=== PATIENT | female | born 1945 | race Caucasian/White ===

== ENCOUNTER 2025-04-15 14:12 | Outpatient (AMB) | payer MEDICARE, SELFPAY ==
--- NOTE | 2025-04-15 14:14 | MHC.OFFVIS ---
Intake Visit Reasons: AUTHORIZATION NURSE/[facility] referral for LE swelling Intake Note: New patient presents for LE swelling. Patient states she has lymphedema, was given Lasix but it did not help. Was given compression stockings but has not used them as she had an issue with them getting stuck at her ankle. Accompanied by: Self / Same As Patient HPI HPI AUTHORIZATION NURSE/[facility] referral for LE swelling: Details: Viktoriya, a pleasant 79yo female patient, is presenting today on a referral from her PCP for concerns of bilateral lower extremity swelling and discomfort, with concerns of lymphedema. She stated to her PCP that she would like to specifically attend our lymphedema clinic. She states that for appx 1-2y now she has had increased bilateral lower extremity swelling and discomfort. Complaints include pain over varicosities, swelling of lower extremities, cramping, fatigue, and heaviness of the lower extremities. It has been affecting their daily activities including walking, standing, and any physical activity. It is noted in bilateral legs. She also thinks that this swelling and pain may be due to a traumatic fall/right shoulder injury she sustained 2y ago; she did not injury her legs but read that traumatic injuries can cause lymphedema. 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 She is a diabetic and her last A1C was 10.6% on 03/12/25. She is a nonsmoker. Patient denies any previous venous surgery or injections. Patient denies any history of DVT/ PE. Patient denies any history of phlebitis. Trial of compression includes - elevation; unable to wear compression socks They now present for vascular evaluation regarding their varicose veins. Review of Systems Const Reports as per HPI and Denies weakness ENT Reports Normal hearing present and Denies dizziness Card Reports as per HPI, Denies chest pain, Denies chest pain at rest, Denies chest pain with activity, Denies dyspnea and Denies dyspnea on exertion Resp Reports as per HPI, Denies cough, Denies dyspnea and Denies dyspnea on exertion GI Reports as per HPI, Denies abdominal pain, Denies nausea and Denies vomiting Musc Denies numbness Skin/Breast Reports as per HPI, Denies erythema and Denies wounds Neuro Reports Normal hearing present, Denies dizziness, Denies numbness, Denies Sensory deficit (Neuro) and Denies weakness Psych Reports no additional complaints Endo Reports no additional complaints Physical Exam Const General: healthy appearing and no acute distress Orientation/consciousness: patient oriented x3 HEENT Head: Yes normal to inspection Ears: hearing grossly normal bilaterally Mouth: Normal oral and palatal mucosa present Resp Effort & Inspection: normal respiratory effort and able to speak in complete sentences Auscultation: clear to auscultation bilaterally Cardio Jugular venous distension: no JVD Rate: regular rate Rhythm: regular rhythm Heart sounds: S1 normal heart sound present and S2 normal heart sound present Bruits: no abdominal aortic bruits, no carotid bruits, no femoral bruits and no renal bruits Peripheral pulses: Peripheral pulses 2+ throughout GI Inspection: Yes normal to inspection Palpation (GI): No Abdominal aortic bruit present Skin General skin exam: no rashes or lesions noted Wounds: no wounds Hair: normal Neuro General: patient oriented x3 Cranial nerves: Yes Normal hearing present Cognition (Neuro): normal cognition Gait exam (Neuro): Normal gait present Motor exam (neuro): 5/5 motor strength present throughout Sensory Exam: No Sensory deficit (Neuro) Extrem Other: Bilateral lower extremity: +2 pitting edema noted with hyperkeratosis, hyperpigmentation/erythematous discoloration in the mid-calf, and hyperplasia. There is decreased hair and shiny skin noted. No injuries or wounds noted. Palpable DP pulses noted. No lymphorrhea noted today; however, she states she has had some in the past. CEAP: C - 4 E - primary A - superficial P - reflux General: Yes normal to inspection, Yes full ROM, Yes capillary refill normal and Yes normal gait Assessment & Plan Assessment & Plan (1) Varicose veins of both lower extremities with inflammation: Code(s): I83.11 - Varicose veins of right lower extremity with inflammation; I83.12 - Varicose veins of left lower extremity with inflammation Category: Medical Plan: Viktoriya is presenting today on a referral from her PCP for concerns of lymphedema with bilateral lower extremity swelling and discomfort. She states she read somewhere that trauma/traumatic injuries can cause lymphedema. She states she had a fall 2y ago, only injuring her right shoulder/upper arm but she states since, she has had increased lower extremity swelling and discomfort; I tried to tell her that likely those were not related. I did discuss with her that she does have evidence of lymphedema and will likely have her attend an upcoming lymphedema clinic; I discussed that we want to make sure there is no vascular dx prior to getting her into the clinic, she is in agreement to this. In short, the patient has evidence of venous insufficiency. I have discussed the pathophysiology with the patient. In addition I have provided informational material regarding venous disease to the patient. We have discussed conservative measures including compression, elevation, and exercise. I have taken the liberty of ordering venous insufficiency testing with the patient. They will follow up with me after testing. The patient had an opportunity to ask questions regarding the treatment plan. All questions were answered. Imaging studies, laboratory studies and physical exam results were discussed and reviewed in detail. No major barriers to understanding were identified. The patient expressed understanding and agreement with the above treatment plan. The patient is aware they should contact our office by phone for worsening of the current condition or the appearance of new symptoms. Thank you for allowing me to participate in the vascular care of this patient. If you have any questions or concerns regarding the treatment for the above condition please do not hesitate to contact me. The office telephone contact is [phone]. This note is constructed using voice recognition software. While every effort has been made to ensure accuracy, art librarian errors may have been included. Thank you for allowing me to participate in the care of your patient. Yours sincerely, FRANCISCA Willett Orders: Orders US venous duplex LE BI 1 Week I83.11 - Varicose veins of right lower extremity with inflammation, I83.12 - Varicose veins of left lower extremity with inflammation Coding Level of Care Code New Pt Level 4 (58458) Diagnoses Varicose veins of both lower extremities with inflammation I83.11; I83.12
== END 2025-04-15 15:03 | disposition home or self-care (01) ==
LOC: HO.HVS 14:13
PROVIDERS: Visit Provider Physician Assistant Surgical
DX: I83.11 Varicose veins of right lower extremity with inflammation (principal); I83.12 Varicose veins of left lower extremity with inflammation
CPT/HCPCS: 99204

== ENCOUNTER → 2025-04-15 14:12 | Outpatient (BNVA) | payer OTHER, MEDICARE, SELFPAY | PROVIDERS: Visit Provider Physician Assistant Surgical | DX: I83.11 Varicose veins of right lower extremity with inflammation (principal); I83.12 Varicose veins of left lower extremity with inflammation | CPT/HCPCS: 99202 ==

== ENCOUNTER 2025-05-26 13:21 | Outpatient (REF) | payer MEDICARE, SELFPAY ==
--- NOTE | ~2025-05-26 | US_ITS ---
EXAMINATION: US LOWER EXTREMITY VENOUS (REFLUX EXAM), BILATERAL CLINICAL INFORMATION: Varicose veins of right lower extremity with inflammation. COMPARISON: None. TECHNIQUE: Color flow triplex imaging and compression Doppler was performed to evaluate both the deep and the superficial systems bilaterally. To evaluate the superficial system, the examination was performed in the upright position. Color-flow Doppler ultrasound and compression ultrasound were utilized. In addition, maneuvers were utilized to demonstrate reflux. FINDINGS: 1. DEEP VENOUS ULTRASOUND OF THE RIGHT LOWER EXTREMITY: Common Femoral Vein: Compressible, normal respiratory variation and augmented flow. Femoral Vein: Compressible, normal color flow and augmentation. Popliteal Vein: Compressible, normal augmentation. Deep Reflux: There is no evidence of reflux in the deep system in either the common femoral vein, superficial femoral or the popliteal vein. There is no evidence of a Galvez's cyst. 2. SUPERFICIAL ULTRASOUND WITH DOPPLER OF RIGHT LOWER EXTREMITY: GREAT SAPHENOUS VEIN: Saphenofemoral Junction: 0.7 cm; Reflux: 0 ms Proximal Thigh: 0.5 cm; Reflux: 0 ms Mid Thigh: 0.4 cm; Reflux: 0 ms Distal Thigh: 0.4 cm; Reflux: 0 ms At Knee: 0.4 cm; Reflux: 0 ms Proximal Calf: 0.3 cm; Reflux: 0 ms Mid Calf: 0.3 cm; Reflux: 0 ms Distal Calf: 0.3 cm; Reflux: 0 ms DUPLICATED MEDIAL GREAT SAPHENOUS VEIN: None imaged. DUPLICATED LATERAL GREAT SAPHENOUS VEIN: None imaged. SMALL SAPHENOUS VEIN: Saphenopopliteal Junction: 0.6 cm; Reflux: 0 ms Proximal: 0.3 cm; Reflux: 0 ms Distal: 0.3 cm; Reflux: 0 ms VEIN OF GIACOMINI: Size: 0.2 Reflux: 0 ms PERFORATORS: Mid thigh; 0.3 cm; no reflux. Midcalf; 0.2 cm; no reflux. VARICOSITIES: None imaged. 3. DEEP VENOUS ULTRASOUND OF THE LEFT LOWER EXTREMITY: Common Femoral Vein: Compressible, normal respiratory variation and augmented flow. Femoral Vein: Compressible, normal color flow and augmentation. Popliteal Vein: Compressible, normal augmentation. Deep Reflux: There is no evidence of reflux in the deep system in either the common femoral vein, superficial femoral or the popliteal vein. There is no evidence of a Galvez's cyst. 4. SUPERFICIAL ULTRASOUND WITH DOPPLER OF LEFT LOWER EXTREMITY: GREAT SAPHENOUS VEIN: Saphenofemoral Junction: 0.8 cm; Reflux: 0 ms Proximal Thigh: 0.5 cm; Reflux: 1672 ms Mid Thigh: 0.5 cm; Reflux: 1676 ms Distal Thigh: 0.4 cm; Reflux: 1364 ms At Knee: 0.5 cm; Reflux: 1180 ms Proximal Calf: 0.5 cm; Reflux: 2172 ms Mid Calf: 0.3 cm; Reflux: 588 ms Distal Calf: 0.4 cm; Reflux: 0 ms DUPLICATED MEDIAL GREAT SAPHENOUS VEIN: None imaged. DUPLICATED LATERAL GREAT SAPHENOUS VEIN: None imaged. SMALL SAPHENOUS VEIN: Saphenopopliteal Junction: 0.7 cm; Reflux: 0 ms Proximal: 0.4 cm; Reflux: 0 ms Distal: 0.3 cm; Reflux: 0 ms VEIN OF GIACOMINI: Size: 0.4 Reflux: 0 ms PERFORATORS: Midcalf; 0.3 cm; no reflux. Proximal calf; 0.3 cm; no reflux. Midcalf 20 cm from calcaneus; 0.2 cm, reflux: 1548 ms VARICOSITIES: Distal calf; 0.4 cm; no reflux. Proximal thigh; 0.4 cm; no reflux. Midcalf; 0.3 cm; no reflux. US/US venous insuf bilat IMPRESSION: RIGHT: 1. No right DVT or evidence of deep venous insufficiency. 2. No evidence of right superficial venous thrombosis or insufficiency. 3. No significant right varicosities identified. LEFT: 1. No left DVT or evidence of deep venous insufficiency. 2. Significant left superficial venous insufficiency of the greater saphenous vein extending from the proximal thigh to the mid calf region. No left superficial thrombosis. 3. Significant varicosities identified in the left distal calf, left mid calf, and left proximal thigh. Electronically signed by: Eric Aquino MD 05/26/2025 02:34 PM EDT
== END 2025-05-26 13:22 | disposition home or self-care (01) ==
LOC: HO.US 13:21
PROVIDERS: PCP Family Medicine; Visit Provider Physician Assistant Surgical
DX: I83.11 Varicose veins of right lower extremity with inflammation (principal); I83.12 Varicose veins of left lower extremity with inflammation
CPT/HCPCS: 93970

== ENCOUNTER → 2025-05-26 13:24 | Outpatient (BNV) | payer MEDICARE, SELFPAY | PROVIDERS: PCP Family Medicine; Visit Provider Radiology Diagnostic Radiology | DX: I83.812 Varicose veins of left lower extremity with pain (principal) | CPT/HCPCS: 93970 ==

== ENCOUNTER 2025-08-05 10:41 | Outpatient (AMB) | payer MEDICARE, SELFPAY ==
--- NOTE | 2025-08-05 10:55 | MHC.OFFVIS ---
Intake Visit Reasons: follow up s/p US 05/26/25 Intake Note: Patient presents for follow up US performed on 05/26/25. Patient states she has lymphedema in her legs. Difficulty walking , uses a can to ambulate. Patient feels unsteady on her feet. Right leg is painful. Accompanied by: Self / Same As Patient Allergies metformin Allergy (Mild, Verified 08/05/25 10:59) Diarrhea HPI HPI follow up s/p 05/26/25: Details: Very pleasant 80-year-old female presents for follow-up regarding venous insufficiency. She has a history of diabetes in right knee pain. She had actually been seen by a us regarding lymphedema evaluation. Upon workup she was noted to have venous insufficiency and now presents for results follow-up regarding that. She has had a trial of compression which provided minimal relief and she had an very difficult time wearing them. She now presents to us for follow-up. Review of Systems Const Reports as per HPI ENT Reports no additional complaints Card Denies chest pain, Denies chest pain at rest and Denies chest pain with activity Resp Denies chest congestion and Denies cough GI Reports no additional complaints Musc Details: pain over varicosities, aching of lower extremities, swelling, cramping, heaviness and tiredness, itching Denies abnormal gait Skin/Breast Reports pruritus and Denies wounds Neuro Reports no additional complaints and Denies abnormal gait Psych Denies no additional complaints Physical Exam Const General: cooperative, healthy appearing and comfortable Orientation/consciousness: oriented to person, oriented to place and oriented to time Neck Carotids: no bruits Chest Chest palpation & inspection: normal inspection of the chest and normal palpation of entire chest wall Resp Effort & Inspection: normal respiratory effort and able to speak in complete sentences Cardio Rate: regular rate Heart sounds: S1 normal heart sound present and S2 normal heart sound present Peripheral pulses: Peripheral pulses 2+ throughout GI Inspection: Yes normal to inspection Skin Other: +2 edema, large rope-like varicosities greater than 4 mm CEAP Classification C4 - skin color changes Ep - Etiology Primary As - superficial veins P - reflux General skin exam: dry skin Neuro General: oriented to person, oriented to place and oriented to time Extrem Right lower extremity: full ROM, normal capillary refill and edema Left lower extremity: full ROM, normal capillary refill and edema Psych Mental Status: mental status grossly normal Results Reviewed Results Reviewed: Brief summary of venous insufficiency testing is as follows: right great saphenous vein: negative right small saphenous vein: negative right accessory vein: none present left great saphenous vein: Positive left small saphenous vein: negative left accessory vein: none present Please note there is no evidence of any venous aneurysms or significant tortuosity Assessment & Plan Assessment & Plan (1) Varicose veins of left lower extremity with inflammation: Code(s): I83.12 - Varicose veins of left lower extremity with inflammation Category: Medical Plan: This patient has varicose veins with inflammation. They continue to be a source of discomfort for the patient. The patient has tried conservative treatment with compression, leg elevation and exercise program for over 3 months time. They have been compliant with all treatment. This has provided minimal relief for the patient. I do not anticipate this course of treatment will alter the underlying etiology. The patient has been scheduled for lower extremity venous treatment inclusive of --- left great saphenous vein Cyanoacralate ablation. Risks, benefits, and complications of this procedure has been discussed in detail with the patient including but not limited to bleeding, infection, and the development of a DVT. The patient has demonstrated a clear understanding and has consented. We will schedule the patient as soon as possible. Thank you for allowing us to participate in this patient's care. If there are any questions or concerns please do not hesitate to contact us. Coding Level of Care Code Est Pt Level 4 (25361) Diagnoses Varicose veins of left lower extremity with inflammation I83.12
--- OUTSIDE RECORDS SUMMARY | 2025-08-05 14:13 | XMS_ITS | Encounter Summary ---
Author Organization [facility] Address [address] [facility] [address] [place] [address] Phone Care Team Providers Care [employer] Name Role Phone Chio Sams MD Primary Care Provider [phone] Reason for Referral * Outpatient Procedure - Closed Specialty Diagnoses / Procedures Referred By [email or web address] t Referred To Contact Radiology Diagnoses Edema, unspecified type Procedures Adult Echo TTE Chio Sams MD [address] [place] [id number] Phone: tel: fax: [email or web address] Referral ID Status Reason Start Date Expiration Date Visits Re quested Visits Authorized [id number] Closed 02/05/2024 02/04/2025 1 1 Encounter Details Date Type Department Care Team (Late st Contact Info) Description 02/05/2024 Transcribe Orders Virtual Department [address] [place] [address] Chio Sams MD [address] [place] [phone] [email or web address] Edema, unspecified type (Primary Dx) Social History Tobacco Use Types Packs/Day Years Used Date Smoking Tobacco: Never Smokeless Tobacco: Never Alcohol Use Standard Drinks/Week Comments Never 0 (1 standard drink = 0.6 oz pur e alcohol) Home Health Assessment: Transportation Answer Date Recorded Lack of Transportation (Medical) No 10/06/2023 Lack of Transportation (Non-Medical) No 10/06/2023 Patient Unable or Declines to Respond No 10/06/2023 Education Answer Date Recorded Are you interested in more education? Not on martín e 03/17/2023 Are you concerned about learning? Not on file 03/17/2023 No 03/17/2023 No 03/17/2023 Digital Access Answer Date Recorded No 04/15/2023 No 04/15/2023 Reliable internet access at home? Not on file 04/15/2023 Device with a working camera? Not on file Comments Unknown Sex and Gender Information Value Date Recorded Sex Assigned at Female 10/28/2019 1:29 PM EST Legal Sex Female 10:08 PM EDT Gender Identity Female 10/28/2019 1:29 PM EST Sexual Orientation Not on file documented as of this encounter Plan of Treatment Upcoming Encounters Date Type Department Care Team (Late st Contact Info) Description 08/07/2025 10:00 AM EDT Office Visit [facility] [address] [place] [address] Valentina Alexandra, GLASS TINTER [address] [place] [phone] Brigette Richards, PT [address] [place] [address] [email or web address] documented as of this encounter Results * TTE COMPREHENSIVE (04/11/2024 11:15 AM EDT) Body Surface Area 1.83 m2 Height 163 cm Weight 78 kg Systolic BP 120 mmHg Diastolic BP 70 mmHg Interventricular Septum Thickness 12 6 - 11 mm Left Ventricle Internal Diameter End Diastole 45 37 - 52 mm Left Ventricle Internal Diameter End Systole 28 <35 mm Left Ventricular Outflow Tract Diameter 20.0 mm LVOT VTI REST 315.0 mm Left Ventricular Outflow Tract Velocity 1.4 m/s Left Ventricular Outflow Tract Gradient at Rest 8 mmHg Left Ventricular Posterior Wall Thickness 12 6 - 11 mm Ejection Fraction 61 50 - 75 Percent Left Atrium Dimension Anterior-Posterior 36 15 - 40 mm Aortic Valve Mean Gradient 6 mmHg Aortic Valve Time Velocity Integral 387.0 mm Aortic Valve Peak Velocity 150.0 cm/s Aortic Valve Peak Gradient 9 mmHg Aortic Sinus Diameter 33 <40 mm Ascending Aorta Diameter 39 <36 mm Inferior Vena Cava Diameter 13 <21 mm Mitral Valve Deceleration Time 324 ms Mitral Valve A Wave Speed 97.3 cm/s Mitral Valve E Wave Speed 75.4 cm/s Right Ventricle Basal Diameter 32 25 - 41 mm Tricuspid Valve Peak Velocity 2.4 m/s Raw LV EF% 61 % Relative Wall Thickness 0.53 0.22 - 0.42 Aortic Valve Prosthetic Peak Gradient 9 mmHg Aortic Valve Prosthetic Mean Gradient 6 mmHg Aortic Valve Sinus Index by BSA 18 mm/m2 Aorta Sinus Index by Height 2.02 cm/m Aorta Sinus CSA index by Height 5.24 cm2/m Ascending Aorta Index 21 mm/m2 Asc Aorta CSA Index by Height 7.33 cm2/m Right Ventricle to Right Atrium Pressure Gradient 23 mmHg Right Ventricle Peak Systolic Pressure (Assuming RAP 10) 33 mmHg RVSP (Exclusive of RAP) 23 mmHg Ascending Aorta Index 21 mm Aortic Sinus Index 18 mm Ascending Aorta Diameter 21 mm Aortic Valve Sinus Index 1 18 19 - 27 mm AO ASC DIAM BSA INDEX 21.31 Left Atrial Volume Index 33 16 - 34 mL/m2 Right Ventricle Peak Systolic Pressure 26 mmHg Left Ventricle E Wave Speed 75.0 cm/s Right Ventricle TAPSE 22 >=17 mm Left Ventricle Ea Lateral Wave Speed 6.5 cm/s Right Ventricle Pulse Doppler S Wave 11.2 >=9.5 cm/s MV E/E' Tissue Velocity Lateral 11.54 Left Ventricle A Wave Speed 97.0 cm/s MV E/A ratio 0.8 Left Ventricle Ea Septal Wave Speed 5.1 cm/s MV E/e' septal 14.71 Left Ventricle E/e' Average 13.1 Left Atrial Volume 61 mL Left Atrial Volume Index by Height 37 mL/m Right Atrium Pressure Estimated 3 mmHg Echo E/Ea 14.71 Anatomical Region Laterality Modality Heart Ultrasound Narrative 04/11/2024 11:46 AM EDT 1. This patient was imaged during normal sinus rhythm. The estimated ejection fraction of the left ventricle is 60%. There are no wall motion abnormalities and there is mild concentric left ventricular hypertrophy. There is grade 1 diastolic impairment. 2. Normal RV size and function. 3. Trileaflet aortic valve with no evidence of aortic stenosis the ascending aortic root is normal size. 4. Trace to mild mitral and trace tricuspid insufficiency with a PA pressure of 30 mmHg. 4. Normal pericardium and no prior echo available for comparison. Left Ventricle The left ventricle is normal in size. There is LV hypertrophy with upper septal predominance. There is mild concentric hypertrophy. There is normal left ventricular systolic function. The LV ejection fraction is 61% (calculated via biplane measurement). There are no wall motion abnormalities. There is abnormal diastolic function. The E/A ratio is 0.8. The e' septal wave velocity is 5.1 cm/s. The e' lateral wave velocity is 6.5 cm/s. The average E/e' ratio is 13.1. Right Ventricle The right ventricle is normal in size. There is normal right ventricular systolic function. TAPSE is 22 mm. RV S' wave is 11.2 cm/s. Left Atrium The left atrium is normal in size. The left atrial anterior-posterior dimension is 36 mm. The left atrial volume index by BSA is 33 mL/m2. Right Atrium The right atrium is normal in size. The IVC is normal in size with normal inspiratory collapse. Mitral Valve There is anterior and posterior mitral annular calcification. There is no mitral stenosis. There is trace to mild mitral regurgitation. Tricuspid Valve The tricuspid valve appears normal. There is no tricuspid stenosis. There is trace tricuspid regurgitation. The RV systolic pressure was calculated at 26 mmHg (using TR peak velocity of 2.4 m/s and assuming an RA pressure of 3 mmHg). Aortic Valve The aortic valve is tricuspid. There is no aortic stenosis. There is no aortic regurgitation. The ascending aorta is mildly dilated. The ascending aortic diameter is 39 mm. Pulmonic Valve The pulmonic valve appears normal. There is no pulmonic stenosis. There is no pulmonic regurgitation. General Findings The image quality was good (2). Technique(s) used in the evaluation: Color flow Doppler and Spectral Doppler. The predominant rhythm during the study was sinus. Comparison Findings There are no prior studies for comparison. IAS/IVS The interatrial septum appears normal. Chio Smas MD CV ECHO ORDERABLES Final Re sult documented in this encounter Visit Diagnoses Diagnosis Edema, unspecified type- Primary Edema, unspecified type documented in this encounter Care Teams [employer] Relationship Specialty Start Date End Date Chio Sams MD [email or web address] PCP - General 09/07/17 documented as of this encounter Additional Source Comments The information contained in this document represents components of the legal health record. It is not the complete legal health record.[facility]
--- OUTSIDE RECORDS SUMMARY | 2025-08-05 14:13 | XMS_ITS | Encounter Summary ---
Author Organization [facility] Address [address] [facility] [address] [place] [phone] Phone Care Team Providers Care [employer] Field Supervisor Name Role Phone Chio Sams MD Primary Care Provider [phone] Encounter Details Date Type Department Care Team (Late st Contact Info) Description 02/05/2024 Procedure Pass [facility] [address] [place] [address] Social History Tobacco Use Types Packs/Day Years [...] Description 08/07/2025 10:00 AM EDT Office Visit [facility] [address] [place] [address] Valentina Alxeandra, [employer] ATTENDANT [address] [place] [phone] Brigette Richards, PT [address] [place] [address] documented as of this encounter Visit Diagnoses Not on filedocumented in this encounter Care Teams [employer] Field Supervisor Relationship Specialty Start Date End Date Chio Sams MD PCP - General 09/07/17 documented as of this encounter Additional Source Comments The information contained in this document represents components of the legal health record. It is not the complete legal health record.[facility]
--- OUTSIDE RECORDS SUMMARY | 2025-08-05 14:13 | XMS_ITS | Encounter Summary ---
Author Organization [facility] Address [address] [place] [address] Phone Care Team Providers Care Three Dimensional Map Modeler Name Role Phone Chio Sams MD Primary Care Provider [phone] Reason for Referral * Physical Therapy (Routine) - Closed Specialty Diagnoses / Procedures Referred By Shanika davila Referred To Contact Physical Therapy Chio Sams MD Phone: tel: fax: mailto:[email or web address] [address] [place] [address] Phone: tel: Referral ID Status Reason Start Date Expiration Date Visits Re quested Visits Authorized [id number] Closed 12/04/2019 11/19/2020 25 25 Encounter Details Date Type Department Care Team (Late st Contact Info) Description 11/08/2019 Transcribe Orders [facility] [address] [place] [address] Chio Sams MD [address] [place] [address] Social History Tobacco Use Types Packs/Day Years Used Date Smoking Tobacco: Never Smokeless Tobacco: Never Alcohol Use Standard Drinks/Week Comments Never 0 (1 standard drink = 0.6 oz pur e alcohol) Comments Unknown Sex and Gender Information Value Date Recorded Sex Assigned at Female 10/28/2019 1:29 PM EST Legal Sex Female 10:08 PM EDT Gender Identity Female 10/28/2019 1:29 PM EST Sexual Orientation Not on file documented as of this encounter Plan of Treatment Upcoming Encounters Date Type Department Care Team (Late st Contact Info) Description 08/07/2025 10:00 AM EDT Office Visit [facility] [address] [place] [address] Valentina Alexandra, SENIOR DATASTAGE DEVELOPER [address] [place] [address] Brigette Richards, PT [address] [place] [address] Scheduled Referrals Name Type Priority Associated Diagnoses Order Schedule Ambulatory referral to [facility] Physical Therapy Outpatient Referral Routine Ordered: 11/08/2019 documented as of this encounter Visit Diagnoses Not on filedocumented in this encounter Additional Health Concerns Infection Onset Date Last Indicated Resolved Time CoV-Risk 04/02/2022 04/02/2022 04/03/2022 4:55 AM EDT COVID-19 04/02/2022 04/02/2022 04/23/2022 1:23 AM EDT documented as of this encounter Care Teams Three Dimensional Map Modeler Relationship Specialty Start Date End Date Chio Sams MD PCP - General 09/07/17 documented as of this encounter Additional Source Comments The information contained in this document represents components of the legal health record. It is not the complete legal health record.[facility]
--- OUTSIDE RECORDS SUMMARY | 2025-08-05 14:13 | XMS_ITS | Encounter Summary ---
Author Organization [facility] Address [address] [address] Phone Care Team Providers Care Learning And Development Manager Name Role Phone Chio Sams MD Primary Care Provider [phone]- [phone] Encounter Details Date Type Department Care Team (Latest Contact Info) Description 05/31/2023 Transcribe Orders Virtual Department [address] [place] [address] Miles Arroyo MD [address] [place] [address] [email or web address] Age-related osteoporosis without current pathological fracture (Primary Dx) Social History Tobacco Use Types Packs/Day Years Used Date Smoking Tobacco: Never Smokeless Tobacco: Never Alcohol Use Standard Drinks/Week Comments Never 0 (1 standard drink = 0.6 oz pur e alcohol) Education Answer Date Recorded Are you interested [...] Upcoming Encounters Date Type Department Care Team ( Contact Info) Description 08/07/2025 10:00 AM EDT Office Visit [facility] [address] [place] [address] Valentina Alexandra MECHANICAL TEST ENGINEER [address] [place] [address] Brigette Richards, PT [address] [place] [address] [email or web address] documented as of this encounter Visit Diagnoses Diagnosis Age-related osteoporosis without current pathological fracture- Primary documented in this encounter Care Teams Learning And Development Manager Relationship Specialty Start Date End Date Chio Sams MD [email or web address] PCP - General 09/07/17 documented as of this encounter Additional Source Comments The information contained in this document represents components of the legal health record. It is not the complete legal health record.[facility]
--- OUTSIDE RECORDS SUMMARY | 2025-08-05 14:13 | XMS_ITS | Clinical Summary ---
Author Organization [facility] Address [address] [facility] [address] [place] [address] Phone Care Team Providers Care Prepared Foods Associate Name Role Phone Chio Sams MD Primary Care Provider [phone] Allergies Active Allergy Reactions Criticality Noted Date Comments Amoxicillin-Pot Clavulanate 10/28/20 19 Metformin 10/28/2019 Medications alendronate (FOSAMAX) 70 MG tablet Take 70 mg by mouth daily. Active lancets 28 gauge Misc as directed. 4 Active blood sugar diagnostic Strp strips as directed. 4 Active lisinopril (PRINIVIL,ZESTRI L) 2.5 MG tablet Take 2.5 mg by mouth daily. Active omeprazole (PRILOSEC) 20 MG capsule Take 20 mg by mouth daily. Active rosuvastatin (CRESTOR) 40 MG tablet Take 40 mg by mouth daily. Active traMADol (ULTRAM) 50 mg tablet Take 50 mg by mouth as needed. Active Medication-Free Text Mastectomy bra Ht: 64 -, Sig: as directed - and mastectomy form Dx: Breast CA-left mastectomy Active lidocaine 5 % ointment 1 application to affected area as needed Externally 45 minutes before appointment Active citalopram (CELEXA) 20 MG tablet Take 20 mg by mouth daily. 2 Active BD FRANCISCA 2ND GEN PEN NEEDLE 32 gauge x Ndle USE 2 TIMES A DAY 2 Active benzonatate (TESSALON) 100 MG capsule [The details of the medication are not available because there are pending changes by a home health clinician.] 21 capsule 2 Active Additional Information Patient not taking.Reason: Therapy complete, Informant: Self, Reported on 09/05/2023 acetaminophen (TYLENOL) 500 MG tablet Take 1,000 mg by mouth every 8 (eight) hours as needed for pain (specific location in comments) (RUE). Active baclofen (LIORESAL) 10 MG tablet Take 10 mg by mouth 3 (three) times a day. Active betamethasone dipropionate 0.05 % cream Apply 1 Application topically 2 (two) times a day. Active busPIRone (BUSPAR) 30 MG tablet Take 30 mg by mouth 2 (two) times a day. Active bisacodyl (DULCOLAX) [address] 10 mg rectally as needed (constipation). Active celecoxib (CELEBREX) 200 MG capsule Take 200 mg by mouth daily. Active docusate sodium (COLACE) 100 MG capsule Take 100 mg by mouth 2 (two) times a day as needed for mild constipation or moderate constipation. Active gabapentin (NEURONTIN) 300 MG capsule Take 900 mg by mouth nightly at bedtime. Active insulin glargine (LANTUS SOLOSTAR U-100 INSULIN) 100 unit/mL (3 mL) InPn injection pen Inject 70 Units under the skin daily. Active insulin lispro (ADMELOG, HUMALOG) 100 unit/mL injection pen Inject under the skin 3 (three) times a day before meals. before meals, BS 200-250 = 2 units, 251-300 = 4 units, 301-350 = 6 units, 351-400 = 8 units, 401-450 = 10 units, over 450 = call MD Active melatonin 3 mg Tab Take 3 mg by mouth nightly at bedtime. Active nystatin (NYSTOP) powder Apply 1 Application topically 2 (two) times a day. Active oxyCODONE 5 MG immediate release tablet Take 5 mg by mouth every 8 (eight) hours as needed for pain (specific location in comments) (RUE). Active propranoloL (INDERAL LA) 80 mg 24 hr capsule Take 80 mg by mouth daily. 3 Active ergocalciferol (VITAMIN D2) 50,000 unit capsule Take 50,000 Units by mouth once a week. 3 Active Active Problems No known active problems Encounters Date Type Department Care Team Description 07/15/2025 Transcribe Orders [facility] [address] [place] [address] Rebeca Garcia Encounter for rehabilitation (Primary Dx) from Last 3 Months Social History Tobacco Use Types Packs/Day Years [...] PM EST Sexual Orientation Not on file Last Filed Vital Signs Vital Sign Reading Time Taken Comments Blood Pressure 120/70 10/06/2023 12:26 PM EST Pulse 68 10/06/2023 12:26 PM EST Temperature 36.2 C (97.1 F) 09/21/2023 9:32 AM EDT Respiratory Rate 16 09/13/2023 11:13 AM EDT Oxygen Saturation 96% 10/06/2023 12:26 PM EST Inhaled Oxygen Concentration - - Weight 78 kg (172 lb) 04/02/2022 2:40 PM EDT Height 162.6 cm (5' 4 ) 04/02/2022 2:40 PM EDT Body Mass Index 29.52 04/02/2022 2:40 PM EDT Plan of Treatment Upcoming Encounters Date Type Department Care Team (Late st Contact Info) Description 08/07/2025 10:00 AM EDT Office Visit [facility] [address] [place] [address] Valentina Alexandra, WAISTLINE JOINER OVERLOCK [address] [place] [address] Brigette Richards, PT [address] [place] [address] [email or web address] Health Maintenance Due Date Last Done Comments DEPRESSION SCREENING 1958 HEPATITIS C SCREENING 1964 ZOSTER VACCINES (1 of 2) 1996 OSTEOPOROSIS SCREENING INITIAL (ONE-TIME) 2011 LIPID PANEL 11/04/2019 11/04/2014 RSV VACCINE (1 - 1-dose 75+ series) 2021 Adult Td,Tdap Booster 07/16/2022 07/16/2012 CREATININE LEVEL 08/02/2024 08/02/2023, 10/28/2019 POTASSIUM LEVEL 08/02/2024 08/02/2023, 10/28/2019 INFLUENZA VACCINE (#1) 2025 9, 10/29/2018, 10/23/2017, Additional history exists COVID-19 VACCINE ( season) 2025 11/04/2021, 05/01/2021, 03/31/2021 PNEUMOCOCCAL VACCINES (50+ years) Completed 03/26/2018, 02/02/2014, 02/05/2009 SMOKING STATUS SCREENING (Once After 26 Yrs) Completed 04/02/2022 HEPATITIS A VACCINES Aged Out No long er eligible based on patient's age to complete this topic HIB VACCINES Aged Out No longer eligi ble based on patient's age to complete this topic MENINGOCOCCAL VACCINES (ACWY) Aged Out No longer eligible based on patient's age to complete this topic MENINGOCOCCAL VACCINES (B) Aged Out N o longer eligible based on patient's age to complete this topic Medical Devices Not on file Procedures Procedure Name Priority Date/Time Associated Diagnosis Comments COMPREHENSIVE METABOLIC PANEL Routine 08/02/2023 5:42 AM EDT Other specified diabetes mellitus with other specified complication, unspecified whether custodial insulin use OUTSIDE LDL Routine 11/04/2014 from Last 3 Months or Most Recently Relevant to Health Maintenance Results * (ABNORMAL) Comprehensive metabolic panel (08/02/2023 5:42 AM EDT) SODIUM 134 133 - 146 mmol/L [facility] POTASSIUM 4.8 3.3 - 5.1 mmol/L [facility] CHLORIDE 96 96 - 108 mmol/L [facility] CO2 28 21 - 35 mmol/L [facility] BUN 25(H) 6 - 19 mg/dL [facility] CREATININE 0.50 0.5 - 1.5 mg/dL [facility] GLUCOSE 247(H) 70 - 99 mg/dL [facility] ALBUMIN 3.8(L) 3.9 - 4.8 g/dL [facility] TOTAL PROTEIN 5.8(L) 6.5 - 8.0 g/dL [facility] CALCIUM 9.2 8.4 - 10.3 mg/dL [facility] ALKALINE PHOSPHATASE 62 39 - 117 U/L [facility] TOTAL BILIRUBIN 0.4 0.0 - 1.2 mg/dL [facility] AST 16 0 - 37 U/L [facility] ALT 12 0 - 40 U/L [facility] GLOBULIN 2.0 1 - 4.8 g/dL [facility] EGFR 97 >59 mL/min/1.7 3m2 [facility] Comment:Estimated glomerular filtration rate calculated using the CKD-EPI refit equation. ANION GAP 15 10 - 20 mmol/L [facility] Blood 08/02/2023 5:42 AM EDT 08/02/2023 1:55 PM EDT us Homer Duckworth MD LAB BLOOD ORDERABLES Final Resul t [facility] [address] [place] [address] * Outside LDL (11/04/2014) LDL - External 119 50 - 250 mg/ml us Historical Provider LAB BLOOD ORDERABLES Amanda l Result from Last 3 Months or Most Recently Relevant to Health Maintenance Insurance [employer] RE[employer]ACEMENT [employer] [place] [place] REPLACEMENT [facility] MED[facility] HMO REPLACEMENT [employer] [place] [employer] REPLACEMENT [employer] [place] [employer] REPLACEMENT [facility] MEDICARE HMO REPLACEMENT [employer] [place] [employer] REPLACEMENT [employer] REPLACEMENT Member Subscriber Plan / Payer ( fective 2018-Present) Name:Viktoriya Olvera Relation to Subscriber:Self Name:Viktoriya Olvera Payer ID:Not on file Type:Medicare Address: [place] [id number] Care Teams Prepared Foods Associate Relationship Specialty Start Date End Date Chio Sams MD PCP - General 09/07/17 Additional Source Comments The information contained in this document represents components of the legal health record. It is not the complete legal health record.[facility]
== END 2025-08-05 11:51 | disposition home or self-care (01) ==
LOC: HO.HVS 10:42
PROVIDERS: PCP Family Medicine; Visit Provider Surgery Vascular Surgery
DX: I83.12 Varicose veins of left lower extremity with inflammation (principal)
CPT/HCPCS: 99214

== ENCOUNTER → 2025-08-05 10:41 | Outpatient (BNVA) | payer MEDICARE, SELFPAY | PROVIDERS: PCP Family Medicine; Visit Provider Surgery Vascular Surgery | DX: I83.12 Varicose veins of left lower extremity with inflammation (principal) | CPT/HCPCS: 99212 ==

== ENCOUNTER 2025-08-22 10:03 | Outpatient (AMB) | payer MEDICARE, SELFPAY ==
--- OUTSIDE RECORDS SUMMARY | 2025-08-22 10:52 | XMS_ITS | Encounter Summary ---
Author Organization [facility] Address [address] [address] Phone Care Team Providers Care Peripatologist Name Role Phone Chio Sams MD Primary Care Provider [phone] Encounter Details Date Type Department Care Team (Latest Contact Info) Description 05/31/2023 Transcribe Orders Virtual Department [address] [place] [address] Miles Arroyo MD [address] [place] [address] [email or web address] Age-related osteoporosis without current pathological fracture (Primary [...] as of this encounter Plan of Treatment Not on file documented as of this encounter Visit Diagnoses Diagnosis Age-related osteoporosis without current pathological fracture- Primary documented in this encounter Care Teams Peripatologist Relationship Specialty Start Date End Date Chio Sams MD [email or web address] PCP - General 09/07/17 documented as of this encounter Additional Source Comments The information contained in this document represents components of the legal health record. It is not the complete legal health record.[facility]
--- OUTSIDE RECORDS SUMMARY | 2025-08-22 10:52 | XMS_ITS | Encounter Summary ---
Author Organization [facility] Address [address] [facility] [address] [place] [address] Phone Care Team Providers Care Tomato Grader Name Role Phone Chio Sams MD Primary Care Provider [phone] Encounter Details Date Type Department Care Team (Late st Contact Info) Description 02/05/2024 Procedure Pass [facility] [address] [place] [address] Social History Tobacco Use Types Packs/Day Years [...] on filedocumented in this encounter Care Teams Tomato Grader Relationship Specialty Start Date End Date Chio Sams MD [email or web address] PCP - General 09/07/17 documented as of this encounter Additional Source Comments The information contained in this document represents components of the legal health record. It is not the complete legal health record.[facility]
--- OUTSIDE RECORDS SUMMARY | 2025-08-22 10:52 | XMS_ITS | Clinical Summary ---
Author Organization [facility] Address [address] [facility] [address] [place] [address] Phone Care Team Providers Care Equipment Service Lead Name Role Phone Chio Sams MD Primary Care Provider [phone] Allergies Active Allergy Reactions Criticality Noted Date [...] once a week. 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 Ankylosing spondylitis 08/07/2025 Diabetic neuropathy 08/07/2025 Diabetic retinopathy 08/07/2025 Hypercholesterolemia 08/07/2025 Hypertension 08/07/2025 Insomnia 08/07/2025 Class 1 obesity 08/07/2025 Type 2 diabetes mellitus 08/07/2025 Encounters Date Type Department Care Team Description 08/07/2025 10:00 AM EDT Office Visit [facility] [address] [place] [address] Valentina Alexandra, Brigette Asencio, PT Dizziness (Primary Dx) 07/15/2025 Transcribe Orders [facility] [address] [place] [address] Rebeca Garcia Encounter for rehabilitation (Primary Dx) [...] 04/02/2022 2:40 PM EDT Plan of Treatment Health Maintenance Due Date Last Done Comments HEMOGLOBIN A1C 1946 DEPRESSION SCREENING 1958 HEPATITIS C SCREENING 1964 ZOSTER VACCINES (1 of 2) 1996 OSTEOPOROSIS SCREENING INITIAL (ONE-TIME) 2011 RSV VACCINE (1 - 1-dose 75+ series) 2021 Adult Td,Tdap Booster 07/16/2022 07/16/2012 BLOOD PRESSURE 04/05/2024 10/06/2023 CREATININE LEVEL 08/02/2024 08/02/2023, 10/28/2019 POTASSIUM LEVEL 08/02/2024 08/02/2023, 10/28/2019 INFLUENZA VACCINE (#1) 2025 9, 10/29/2018, 10/23/2017, Additional history exists COVID-19 VACCINE ( season) 2025 11/04/2021, 05/01/2021, 03/31/2021 DIABETIC EYE EXAM 08/07/2025 PNEUMOCOCCAL VACCINES (50+ years) Completed 03/26/2018, 02/02/2014, [...] Procedure Name Priority Date/Time Associated Diagnosis Comments AMB REFERRAL TO [facility] PHYSICAL THERAPY Routine 08/07/2025 11:00 AM EDT Encounter for rehabilitation COMPREHENSIVE METABOLIC PANEL Routine 08/02/2023 5:42 AM EDT Other specified diabetes mellitus with other specified complication, unspecified whether long chain beamer insulin use from Last 3 Months or Most Recently Relevant to Health Maintenance Results * Ambulatory referral to [facility] Physical Therapy (08/07/2025 11:00 AM EDT) Other us Valentina Alexandra BOAT LABORER AMB [facility] REFERRALS Final Resul t * (ABNORMAL) Comprehensive metabolic panel (08/02/2023 5:42 AM EDT) SODIUM 134 133 - 146 mmol/L [facility] POTASSIUM 4.8 3.3 - 5.1 mmol/L [facility] CHLORIDE 96 96 - 108 mmol/L [facility] CO2 28 21 - 35 mmol/L [facility] BUN 25(H) 6 - 19 mg/dL [facility] CREATININE 0.50 0.5 - 1.5 mg/dL [facility] GLUCOSE 247(H) 70 - 99 mg/dL [facility] ALBUMIN 3.8(L) 3.9 - 4.8 g/dL [facility] TOTAL PROTEIN 5.8(L) 6.5 - 8.0 g/dL [facility] CALCIUM 9.2 8.4 - 10.3 mg/dL [facility] ALKALINE PHOSPHATASE 62 39 - 117 U/L [facility] TOTAL BILIRUBIN 0.4 0.0 - 1.2 mg/dL [facility] AST 16 0 - 37 U/L [facility] ALT 12 0 - 40 U/L [facility] GLOBULIN 2.0 1 - 4.8 g/dL [facility] EGFR 97 >59 mL/min/1.7 3m2 [facility] Comment:Estimated glomerular filtration rate calculated using the CKD-EPI refit equation. ANION GAP 15 10 - 20 mmol/L [facility] Blood 08/02/2023 5:42 AM EDT 08/02/2023 1:55 PM EDT us Homer Duckworth MD LAB BLOOD ORDERABLES Final Resul t [address] [address] from Last 3 Months or Most Recently [...] REPLACEMENT [employer] H[employer] REPLACEMENT Care Teams Equipment Service Lead Relationship Specialty Start Date End Date Chio Sams MD PCP - General 09/07/17 Additional Source Comments The information contained in this document represents components of the legal health record. It is not the complete legal health record.[facility]
--- OUTSIDE RECORDS SUMMARY | 2025-08-22 10:53 | XMS_ITS | Encounter Summary ---
Author Organization [facility] Address [address] [facility] [address] [place] [address] Phone Care Team Providers Care Commercial Lending Vice President Name Role Phone Chio Sams MD Primary Care Provider [phone] Reason for Referral * Outpatient Procedure - Closed Specialty Diagnoses / Procedures Referred By Shanika t Referred To Contact Radiology Diagnoses Edema, unspecified type Procedures Adult Echo TTE Chio Sams MD [address] [place] [address] Phone: tel: fax: mailto:[email or web address] Referral ID Status Reason Start Date Expiration Date Visits Re quested Visits Authorized [id number] Closed 02/05/2024 02/04/2025 1 1 Encounter Details Date Type Department Care Team (Late st Contact Info) Description 02/05/2024 Transcribe Orders Virtual Department [address] [place] [address] Chio Sams MD [address] [place] [address] [email or web address] Edema, unspecified type (Primary Dx) Social History [...] on file documented as of this encounter Results * [...] comparison. IAS/IVS The interatrial septum appears normal. us Chio Sams MD CV ECHO ORDERABLES Final Re sult documented in this encounter Visit Diagnoses Diagnosis Edema, unspecified type- Primary Edema, unspecified type documented in this encounter Care Teams Commercial Lending Vice President Relationship Specialty Start Date End Date Chio Sams MD [email or web address] PCP - General 09/07/17 documented as of this encounter Additional Source Comments The information contained in this document represents components of the legal health record. It is not the complete legal health record.[facility]
--- OUTSIDE RECORDS SUMMARY | 2025-08-22 10:53 | XMS_ITS | Encounter Summary ---
Author Organization [facility] Address [address] [place] [address] Phone Care Team Providers Care Wharf Labourer Name Role Phone hCio Sams MD Primary Care Provider [phone] Reason for Referral * Physical Therapy (Routine) - Closed Specialty Diagnoses / Procedures Referred By Shanika davila Referred To Contact Physical Therapy Chio Sams MD Phone: tel: fax: mailto:[email or web address] [facility] [address] [place] [address] Phone: tel: Referral ID Status Reason Start Date Expiration Date Visits Re quested Visits Authorized [id number] Closed 12/04/2019 11/19/2020 25 25 Encounter Details Date Type Department Care Team (Late st Contact Info) Description 11/08/2019 Transcribe Orders [facility] [address] [place] [address] Chio Sams MD [address] [place] [address] Social History Tobacco Use Types Packs/Day Years [...] as of this encounter Plan of Treatment Scheduled Referrals Name Type Priority Associated Diagnoses Order Schedule Ambulatory referral to [facility] Physical Therapy Outpatient Referral Routine Ordered: 11/08/2019 documented as of this encounter Visit Diagnoses Not on filedocumented in this encounter Additional Health Concerns Infection Onset Date Last Indicated Resolved Time CoV-Risk 04/02/2022 04/02/2022 04/03/2022 4:55 AM EDT COVID-19 04/02/2022 04/02/2022 04/23/2022 1:23 AM EDT documented as of this encounter Care Teams Wharf Labourer Relationship Specialty Start Date End Date Chio Sams MD [email or web address] PCP - General 09/07/17 documented as of this encounter Additional Source Comments The information contained in this document represents components of the legal health record. It is not the complete legal health record.[facility]
--- NOTE | 2025-08-22 11:11 | A.OFFVIS_ITS ---
Intake Visit Reasons: Left GSV Venaseal Range Management Specialist Required: No Accompanied by: Self / Same As Patient Allergies metformin Allergy (Mild, Verified 08/22/25 11:12) Diarrhea Office Procedures Vascular Office Procedure Details Details: Diagnosis: Left Leg varicose veins with inflammation Procedure: Endovenous Ablation of the left Great Saphenous Vein with VenaSeal Closure System Anesthesia: Local infiltration 5 cc, Developer Designer: none Estimated Blood Loss: min Specimen: none Duplex ultrasound was used to map out the insufficient saphenous vein, and acc ess was determined and marked on the overlying skin. The depth and diameter of the vein(s) to be treated was documented. The patient was placed supine on the procedure table and the leg was prepped and draped using sterile technique. Ultasound guidance was again used to localize the access site. 1% lidocaine was injected as a local anesthetic in the subcutaneous tissues at the target location in the GSV in the lower leg. Using ultrasound guidance, access was gained at this location with the 19 gauge thin walled access needle and followed by introduction of a short guidewire, location confirmed with ultrasound. A small, 3 mm incision was made at the access site to allow for introduction and placement of the 7 Fr x7cm introducer/dilator. The dilator and guidewire were removed. The 0.035 guidewire from the VenaSeal kit was then introduced and positioned at the saphenofemoral junction using ultrasound guidance. The 80 cm 7 Fr introducer sheath/dilator was positioned 5cm from the saphenofemoral junction. The guidewire and dilator were removed, and the remaining sheath was flushed with sterile saline, with the syringe remaining in place prior to the next steps. The cyanoacrylate adhesive was precisely primed into the 5 F delivery catheter and this catheter/syringe combination was attached within the dispenser gun. This assembly was introduced through the 7F sheath and positioned 5 cm caudal of the saphenofemoral junction under ultrasound guidance. The steps from the IFU were followed for dispensing amounts, locations and compression times, 2 aliquots proximally with 3 minutes of compression, and 1 aliquot every 3 cm distally with 30 sec of compression along the course of the vessel. Following the last injection and compression sequence, the catheter and introducer sheath were pulled out from the access site. Hemostasis was achieved with manual compression and an adhesive bandage was applied to the incision. Ultrasound confirmed complete coaptation and closure of the treated segments of the GSV, and the absence of any DVT at the saphenofemoral junction. Treatment time was approximately 5 minutes and the vein length treated was 30 cm. The drapes were removed and the patient cleaned and prepared for discharge. Post op ultrasound check is scheduled for 48-72 hours and the patient was given written post-op instructions. 77530 - Endoven Ther Chem Adhes 1st All charges added?: Procedure code (CPT) selection complete Assessment & Plan Assessment & Plan (1) Varicose veins of left lower extremity with inflammation: Comment: 08/22/2025 - left great saphenous vein Cyanoacralate ablation Code(s): I83.12 - Varicose veins of left lower extremity with inflammation Category: Medical Plan: See op note Coding Level of Care Code Procedure Only Diagnoses Varicose veins of left lower extremity with inflammation I83.12 CPT Codes Details - Vascular 3: 31833 - Endoven Ther Chem Adhes 1st ([id number])
== END 2025-08-22 10:56 | disposition home or self-care (01) ==
LOC: HO.HVS 10:04
PROVIDERS: PCP Family Medicine; Visit Provider Surgery Vascular Surgery
DX: I83.12 Varicose veins of left lower extremity with inflammation (principal)
CPT/HCPCS: 36482

== ENCOUNTER → 2025-08-22 10:03 | Outpatient (BNVA) | payer MEDICARE, SELFPAY | PROVIDERS: PCP Family Medicine; Visit Provider Surgery Vascular Surgery | DX: I83.12 Varicose veins of left lower extremity with inflammation (principal) | CPT/HCPCS: 36482; J2003 ==

== ENCOUNTER 2025-09-04 10:31 | Outpatient (AMB) | payer MEDICARE, SELFPAY ==
--- NOTE | 2025-09-04 10:34 | MHC.OFFVIS ---
Intake Visit Reasons: 2 wk follow up Left GSV Venaseal 08/22/25 Intake Note: Patient presents for follow up left gsv venaseal. Patient states her leg is still swelling and has bruising. Accompanied by: Self / Same As Patient Allergies metformin Allergy (Mild, Verified 09/04/25 10:39) Diarrhea HPI HPI 2 wk follow up Left GSV Venaseal 08/22/25: Details: The patient is a very complex 80-year-old female presenting for follow-up after a venous seal procedure on the left great saphenous vein. The procedure was performed on 08/22/2025, following venous insufficiency testing on 05/26/2025, which indicated issues with the left great saphenous vein while other veins were within normal limits. Post-procedure, the patient reports no significant issues The patient has been active, walking immediately after the procedure, and reports feeling better overall, although she desires more visible improvement. She has been advised that full recovery and visible changes may take two to three months. She now presents for routine postprocedure follow-up Review of Systems Const All systems reviewed & are unremarkable except as noted in HPI and below Reports no additional complaints ENT Reports Normal hearing present Card Denies chest pain, Denies chest pain at rest, Denies chest pain with activity and Denies pedal edema Resp Denies cough GI Denies abdominal pain Musc Denies abnormal gait, Denies muscle cramps and Denies radiating pain into limb Skin/Breast Denies skin ulcer and Denies wounds Neuro Reports Normal hearing present and Denies abnormal gait Psych Reports no additional complaints Physical Exam Const General: cooperative, healthy appearing and comfortable Orientation/consciousness: oriented to person, oriented to place and oriented to time HEENT Head: Yes normal to inspection Neck Neck: Yes normal visual inspection Carotids: no bruits Chest Chest palpation & inspection: normal inspection of the chest Resp Effort & Inspection: normal respiratory effort and able to speak in complete sentences Auscultation: clear to auscultation bilaterally, no crackles, no rales, no rhonchi and no wheezes Cardio Rate: regular rate Rhythm: regular rhythm Heart sounds: S1 normal heart sound present and S2 normal heart sound present Bruits: no carotid bruits Peripheral pulses: Peripheral pulses 2+ throughout GI Inspection: Yes normal to inspection Skin Wounds: no wounds Hair: normal Neuro General: oriented to person, oriented to place and oriented to time Cranial nerves: Yes CN's II-XII intact bilaterally and Yes Normal hearing present Cognition (Neuro): normal cognition Motor exam (neuro): 5/5 motor strength present throughout Extrem Other: venous exam: No significant superficial varicosities or spider telangiectasias, minimal edema General: No clubbing, No cyanosis and No edema Psych Appearance: grossly normal Mental Status: mental status grossly normal Speech and movement: Normal speech and movement present Assessment & Plan Assessment & Plan (1) Varicose veins of left lower extremity with inflammation: Comment: 08/22/2025 - left great saphenous vein Cyanoacralate ablation Code(s): I83.12 - Varicose veins of left lower extremity with inflammation Category: Medical Plan: The patient has done extremely well with all venous treatments. Patient's may often experience postprocedure phlebitic episodes and I have discussed with the patient use of warm compresses and NSAIDS if tolerated for pain discomfort. In addition, I have discussed continued conservative measures including use of compression, leg elevation, and exercise. The patient was also given an information sheet regarding appropriate use of compression stockings and future purchases. Thank you for allowing us to care for your patient with venous disease. Plan Patient was informed and verbally consented to the use of an ambient scribe for clinic note documentation during this visit. Coding Level of Care Code Est Pt Level 3 (02494) Diagnoses Varicose veins of left lower extremity with inflammation I83.12
--- OUTSIDE RECORDS SUMMARY | 2025-09-04 13:01 | XMS_ITS | Encounter Summary ---
Author Organization [facility] Address [address] [place] [phone] Phone Care Team Providers Care Charging Operator Name Role Phone Chio Sams MD Primary Care Provider [phone] Reason for Referral * Physical Therapy (Routine) - Closed Specialty Diagnoses / Procedures Referred By Shanika davila Referred To Contact Physical Therapy Chio Sams MD Phone: tel: fax: [email or web address] [facility] [address] [place] [address] Phone: tel: Referral ID Status Reason Start Date Expiration Date Visits Re quested Visits Authorized [id number] Closed 12/04/2019 11/19/2020 25 25 Encounter Details Date Type Department Care Team (Late st Contact Info) Description 11/08/2019 Transcribe Orders [facility] [address] [place] [phone] Chio Sams MD [address] [place] [id number] [email or web address] Social History Tobacco Use Types Packs/Day Years [...] Associated Diagnoses Order Schedule Ambulatory referral to [facility] Physical Therapy Outpatient Referral Routine Ordered: 11/08/2019 documented as of this encounter Visit Diagnoses Not on filedocumented in this encounter Additional Health Concerns Infection Onset Date Last Indicated Resolved Time CoV-Risk 04/02/2022 04/02/2022 04/03/2022 4:55 AM EDT COVID-19 04/02/2022 04/02/2022 04/23/2022 1:23 AM EDT documented as of this encounter Care Teams Charging Operator Relationship Specialty Start Date End Date Chio Sams MD [email or web address] PCP - General 09/07/17 documented as of this encounter Additional Source Comments The information contained in this document represents components of the legal health record. It is not the complete legal health record.[facility]
--- OUTSIDE RECORDS SUMMARY | 2025-09-04 13:01 | XMS_ITS | Encounter Summary ---
Author Organization [facility] Address [address] [place] [address] [place] [address] Phone Care Team Providers Care Compressor Technician Name Role Phone Chio Sams MD Primary Care Provider [phone] Reason for Referral * Outpatient Procedure - Closed Specialty Diagnoses / Procedures Referred By Shanika t Referred To Contact Radiology Diagnoses Edema, unspecified type Procedures Adult Echo TTE Chio Sams MD [address] [place] [address] Phone: tel: fax: [email or web address] Referral ID Status Reason Start Date Expiration Date Visits Re quested Visits Authorized [id number] Closed 02/05/2024 02/04/2025 1 1 Encounter Details Date Type Department Care Team (Late st Contact Info) Description 02/05/2024 Transcribe Orders Virtual Department [address] [place] [address] Chio Sams MD [address] [place] [phone] [email or web address] Edema, unspecified type (Primary Dx) Social History [...] type documented in this encounter Care Teams Compressor Technician Relationship Specialty Start Date End Date Chio Sams MD [email or web address] PCP - General 09/07/17 documented as of this encounter Additional Source Comments The information contained in this document represents components of the legal health record. It is not the complete legal health record.[facility]
--- OUTSIDE RECORDS SUMMARY | 2025-09-04 13:01 | XMS_ITS | Encounter Summary ---
Author Organization [facility] Address [address] [address] Phone Care Team Providers Care Sheet Metal Supervisor Name Role Phone Chio Sams MD Primary Care Provider [phone] Encounter Details Date Type Department Care Team (Latest Contact Info) Description 05/31/2023 Transcribe Orders Virtual Department [address] [place] [address] Miles Arroyo MD [address] [place] [address] [email or web address] Age-related osteoporosis without current pathological fracture (Primary [...] Primary documented in this encounter Care Teams Sheet Metal Supervisor Relationship Specialty Start Date End Date Chio Sams MD [email or web address] PCP - General 09/07/17 documented as of this encounter Additional Source Comments The information contained in this document represents components of the legal health record. It is not the complete legal health record.[facility]
--- OUTSIDE RECORDS SUMMARY | 2025-09-04 13:01 | XMS_ITS | Clinical Summary ---
Author Organization [facility] Address [address] [facility] [address] [place] [address] Phone Care Team Providers Care Landmen Name Role Phone Chio Sams MD Primary Care Provider [phone] Allergies Active Allergy Reactions Criticality Noted Date [...] Description 08/07/2025 10:00 AM EDT Office Visit [facility] Services [address] [place] [address] Valentina Alexandra, Brigette Asencio, PT Dizziness (Primary Dx) 07/15/2025 Transcribe Orders [facility] [address] [place] [address] Rebeca Garcia Encounter for rehabilitation (Primary Dx) [...] Date/Time Associated Diagnosis Comments AMB REFERRAL TO [facility] PHYSICAL THERAPY Routine 08/07/2025 11:00 AM EDT Encounter for rehabilitation COMPREHENSIVE METABOLIC PANEL Routine 08/02/2023 5:42 AM EDT Other specified diabetes mellitus with other specified complication, unspecified whether chcf insulin use from Last 3 Months or Most Recently Relevant to Health Maintenance Results * Ambulatory referral to [facility] Physical Therapy (08/07/2025 11:00 AM EDT) Other us Valentina Alexandra SAFETY FIRE BOSS AMB [facility] REFERRALS Final Resul t * (ABNORMAL) Comprehensive metabolic panel (08/02/2023 5:42 AM EDT) SODIUM 134 133 - 146 mmol/L [facility] POTASSIUM 4.8 3.3 - 5.1 mmol/L [facility] CHLORIDE 96 96 - 108 mmol/L [facility] CO2 28 21 - 35 mmol/L [facility] BUN 25(H) 6 - 19 mg/dL [facility] CREATININE 0.50 0.5 - 1.5 mg/dL [facility] GLUCOSE 247(H) 70 - 99 mg/dL [facility] ALBUMIN 3.8(L) 3.9 - 4.8 g/dL [facility] TOTAL PROTEIN 5.8(L) 6.5 - 8.0 g/dL [facility] CALCIUM 9.2 8.4 - 10.3 mg/dL [facility] ALKALINE PHOSPHATASE 62 39 - 117 U/L [facility] TOTAL BILIRUBIN 0.4 0.0 - 1.2 mg/dL [facility] AST 16 0 - 37 U/L [facility] ALT 12 0 - 40 U/L [facility] GLOBULIN 2.0 1 - 4.8 g/dL [facility] EGFR 97 >59 mL/min/1.7 3m2 [facility] Comment:Estimated glomerular filtration rate calculated using the CKD-EPI refit equation. ANION GAP 15 10 - 20 mmol/L [facility] Blood 08/02/2023 5:42 AM EDT 08/02/2023 1:55 PM EDT us Homer Duckworth MD LAB BLOOD ORDERABLES Final Resul t [address] [address] from Last 3 Months or Most Recently [...] [employer] [place] [employer] Care Teams Landmen Relationship Specialty Start Date End Date Chio Sams MD PCP - General 09/07/17 Additional Source Comments The information contained in this document represents components of the legal health record. It is not the complete legal health record.[facility]
--- OUTSIDE RECORDS SUMMARY | 2025-09-04 13:01 | XMS_ITS | Encounter Summary ---
Author Organization [facility] Address [address] [facility] [address] [place] [phone] Phone Care Team Providers Care Senior Housekeeper Name Role Phone Chio Sams MD Primary Care Provider [phone] Encounter Details Date Type Department Care Team (Late st Contact Info) Description 02/05/2024 Procedure Pass [facility] [address] [place] [address] Social History Tobacco Use Types Packs/Day Years [...] on filedocumented in this encounter Care Teams Senior Housekeeper Relationship Specialty Start Date End Date Chio Sams MD [email or web address] PCP - General 09/07/17 documented as of this encounter Additional Source Comments The information contained in this document represents components of the legal health record. It is not the complete legal health record.[facility]
== END 2025-09-04 10:55 | disposition home or self-care (01) ==
LOC: HO.HVS 10:32
PROVIDERS: PCP Family Medicine; Visit Provider Surgery Vascular Surgery
DX: I83.12 Varicose veins of left lower extremity with inflammation (principal)
CPT/HCPCS: 99213

== ENCOUNTER → 2025-09-04 10:31 | Outpatient (BNVA) | payer MEDICARE, SELFPAY | PROVIDERS: PCP Family Medicine; Visit Provider Surgery Vascular Surgery | DX: I83.12 Varicose veins of left lower extremity with inflammation (principal) | CPT/HCPCS: 99212 ==